=== PATIENT | male | born 1960 | race Caucasian/White ===

== ENCOUNTER 2018-08-12 06:08 | Day surgery (SDC) | payer OTHER ==
[~2018-08-12] VITALS: Ht 185.4 cm; Wt 129.6 kg
[~2018-08-12 06:08] MED LIST: AMIO200T PO; ATEN50TA2 PO; ATOR1TAB19 PO; ELIQ5TAB PO; FENO134C PO; HYDR25TAB PO; LOSA100T50 PO; LR 1,000 ML IV ONE; NORV5TAB PO
[2018-08-12] MEDS ORDERED: LIDOCAINE 2% INJ 100 MG/5 ML SDV (FOR ANES.) As Ordered ONE (06:53)
[2018-08-12] MEDS ORDERED: PROPOFOL 200 MG/20 ML VIAL As Ordered ONE (06:53)
--- NOTE | 2018-08-12 07:23 | ECGEPIP ---
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
[2018-08-12 08:31] VITALS: BP 112/69
--- NOTE | 2018-08-12 09:06 | RO ---
DATE OF PROCEDURE: 08/12/2018 PRINCIPAL DIAGNOSIS: Atrial fibrillation. PROCEDURE: Cardioversion. SURGEON: Dr. Musa Coon ANESTHESIA: Lucia Ahumada CRNA HISTORY: Mr. Lorenzo is a 57-year-old man who was found to be in atrial fibrillation in January 2018. He was anticoagulated started on amiodarone but in spite of that he did not convert to sinus rhythm. Because he is otherwise relatively healthy and still very young, I felt it was appropriate to restore sinus mechanism. I explained the rationale, the potential outcomes and complications to the patient on outpatient basis and he did sign appropriate consent. He was then brought to hospital in a fasting condition. PROCEDURE NOTE: After the patient was examined and appropriate time-out was taken, he was brought to the recovery room and appropriate monitors and defibrillator patches were applied. Anesthesia administered sedation. He received total 150 mg of IV propofol. When appropriate level of sedation was accomplished, he was cardioverted with 200 joules of energy in synchronized mode with typical position of defibrillator patches. Single shock led to hinduism of sinus mechanism without post conversion pause. The patient tolerated the procedure overall well and currently 12-lead ECG is pending. He will be discharged home on his current medications and will schedule followup appointment in our office next week. DANIELE
--- NOTE | 2018-08-13 13:18 | ECGEPIP ---
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
== END 2018-08-12 08:35 | disposition home or self-care (01) ==
LOC: M SDC 06:08
PROVIDERS: ATTEND Internal Medicine Cardiovascular Disease
DX: I48.91 Unspecified atrial fibrillation (principal); I10 Essential (primary) hypertension; Z88.5 Allergy status to narcotic agent; Z79.899 Other long term (current) drug therapy

== ENCOUNTER → 2018-09-14 | Outpatient (CLI) | payer OTHER ==
[~2018-09-14] MED LIST changes: -LR 1,000 ML IV ONE
--- NOTE | 2018-09-21 10:28 | SLEEPCENT ---
DATE OF STUDY: 09/14/2018 ORDERED BY: MARJAN Lopez Nocturnal polysomnography was performed for evaluation of sleep physiology in this patient with history of excessive somnolence and nonrestorative sleep who has comorbidities of hypertension, prior history of atrial fibrillation. 7 hours and 48 minutes of data were reviewed. There were 290 minutes of sleep identified. Sleep latency was prolonged at 43 minutes. Rapid eye movement (REM) latency was short at 42 minutes. Sleep architecture showed fragmentation and a period of wake around 3:00 a.m. resulting in a sleep efficiency of 62.6%. The electrocardiogram showed sinus rhythm with an average heart rate of 65 beats per minute. Rate ranged 45-80. EEG showed normal waveforms for awake and sleep. Some mild alpha intrusion was suspected in non REM stages. There were no focal events and there were normal waveforms for awake and sleep. There were 87 respiratory events identified of 10 seconds in duration or greater for an apnea-hypopnea index of 18. The events were primarily obstructive, not exclusive to sleep stage, more frequent but not exclusive to the supine posture. Arousals from respiratory events occurred 5.8 times per hour and oxygen desaturations were seen into the upper 70s. There was some limb activity in the EMG leads, one train at 30 events and limb movement arousal index was 6.4. IMPRESSION: Obstructive sleep apnea syndrome (G47.33). Apnea-hypopnea index 18. RECOMMENDATION: The patient should be encouraged to return to the sleep disorder center for pressure therapy. In the interim, alcohol and sedative avoidance should be practiced and caution exercised during the operation of motor vehicles. cc: Musa Coon MD
== END ==
LOC: M SLEEP 19:39
PROVIDERS: ATTEND Nurse Practitioner Family
DX: G47.33 Obstructive sleep apnea (adult) (pediatric) (principal)

== ENCOUNTER → 2018-10-07 | Outpatient (CLI) | payer OTHER ==
--- NOTE | 2018-10-14 07:58 | SLEEPCENT ---
DATE OF PROCEDURE: 10/07/2018 ORDERING PROVIDER: Jeimy Ramey, copy to FAUSTINO Miranda. INTERPRETATION: Nocturnal polysomnography was performed for the titration of pressure therapy in this patient with obstructive sleep apnea syndrome, and apnea-hypopnea index of 18. For testing the patient was fit with a [employer]Med Mirage Quattro full-face mask of medium size, 4 cm of water pressure were applied to the circuit, and the lights were extinguished. 7 hours and 20 minutes of data were reviewed. There were 231.5 minutes of sleep identified. Sleep latency was prolonged at 52 minutes. Rapid eye movement (REM) latency was short at 32 minutes. Sleep architecture was good with three REM cycles. Overall sleep efficiency was 53.2% due to a period wake around 2:00 a.m. The electrocardiogram showed sinus rhythm with an average heart rate of 60 beats per minute. EEG showed fairly normal waveforms for awake and sleep. Respiratory events were fully palliated with CPAP of pressure +8 and remaining measures of sleep physiology were normal. IMPRESSION: Obstructive sleep apnea syndrome (G47.33) RECOMMENDATIONS: Nightly use of pressure therapy 8 cm of water.
== END ==
LOC: M SLEEP 19:36
PROVIDERS: ATTEND Nurse Practitioner Family
DX: G47.33 Obstructive sleep apnea (adult) (pediatric) (principal)

== ENCOUNTER → 2020-08-19 | Outpatient (CLI) | payer OTHER ==
[~2020-08-19] MED LIST changes: -AMIO200T PO; +AMIO200T3 PO; +HYDR-3490 PO; -HYDR25TAB PO
--- NOTE | 2020-08-21 09:25 | REP ---
INDICATION: CONTUSION RIGHT LOWER LEG. COMPARISON: None. TECHNIQUE: Axial, coronal, and sagittal imaging planes utilized. T1 and T2 weighted scans are included with without fat saturation. FINDINGS: Cortical and medullary bone signal intensity are normal in the tibia and fibula. No occult fracture or periosteal reaction is seen. No bony destructive lesion is observed. Skeletal muscle of the calf is normal in contour, course and signal intensity on T1 and T2 weighted scans. No abnormal fluid collection is seen. There is diffuse edema in the subcutaneous fat of the calf. There are superficial vein varicosities in the proximal calf medially. No other vascular abnormality is seen. No soft tissue mass is appreciated. IMPRESSION: No acute bony abnormality. Diffuse subcutaneous edema. Superficial vein varicosities. Otherwise negative <Electronically signed by Javad Moon > 08/21/20 2054
== END ==
LOC: M RAD 14:01
PROVIDERS: ATTEND Orthopaedic Surgery
DX: S80.11XD Contusion of right lower leg, subsequent encounter (principal); W18.30XD Fall on same level, unspecified, subsequent encounter; Y92.009 Unspecified place in unspecified non-institutional (private) residence as the place of occurrence of the external cause

== ENCOUNTER → 2021-04-07 | Outpatient (CLI) | payer OTHER ==
[~2021-04-07] MED LIST changes: -AMIO200T3 PO; +AMIO200T49 PO; +LOSA100T45 PO; -LOSA100T50 PO
== END ==
LOC: M LABSMTC 10:39
PROVIDERS: ATTEND Anesthesiology
DX: Z01.818 Encounter for other preprocedural examination (principal); Z11.52 Encounter for screening for COVID-19

== ENCOUNTER 2021-04-12 12:20 | Day surgery (SDC) | payer OTHER ==
[~2021-04-12] VITALS: Ht 185.4 cm; Wt 123.3 kg
[~2021-04-12 12:20] MED LIST changes: -FENO134C PO; +FENO134C16 PO
[2021-04-12] MEDS ORDERED: propofoL 200 MG/20 ML VIAL As Ordered ONE (13:16)
[2021-04-12] MEDS ORDERED: LIDOCAINE 2% 100MG/5ML SDV (FOR ANES.) As Ordered ONE (13:16)
[2021-04-12 14:40] VITALS: BP 136/78
[2021-04-14] MEDS ORDERED: NS 1,000 ML IV ONE (06:00)
== END 2021-04-12 14:59 | disposition home or self-care (01) ==
LOC: M OPP 12:20
PROVIDERS: ATTEND Surgery
DX: Z12.11 Encounter for screening for malignant neoplasm of colon (principal); Z79.899 Other long term (current) drug therapy; Z88.8 Allergy status to other drugs, medicaments and biological substances; G47.33 Obstructive sleep apnea (adult) (pediatric)

== ENCOUNTER → 2023-09-05 | Outpatient (REF) | payer OTHER ==
[~2023-09-05] MED LIST changes: -FENO134C16 PO; +FENO134C20 PO; -LOSA100T45 PO; +LOSA100T46 PO
== END ==
LOC: M LAB REF 12:09
PROVIDERS: ATTEND Nurse Practitioner Family
DX: L03.116 Cellulitis of left lower limb (principal)

== ENCOUNTER 2023-10-07 06:01 | Day surgery (SDC) | payer OTHER ==
[~2023-10-07] VITALS: Ht 185.4 cm; Wt 127.7 kg
[~2023-10-07 06:01] MED LIST changes: +AMLO1TAB25 PO; +METO1TAB32 PO
[2023-10-07] MEDS ORDERED: LIDOCAINE 1% SDV 5ML VIAL SC PRN (06:15)
[2023-10-07] MEDS: LR 1,000 ML IV SCH (06:47)
[2023-10-07 07:45] VITALS: BP 128/80; TEMP 97.3; O2SAT 97
[2023-10-07] MEDS ORDERED: propofoL 200 MG/20 ML VIAL As Ordered ONE (08:05)
== END 2023-10-07 08:02 | disposition home or self-care (01) ==
LOC: M SDC 06:01
PROVIDERS: ATTEND Internal Medicine Cardiovascular Disease
DX: I48.91 Unspecified atrial fibrillation (principal); Z98.890 Other specified postprocedural states; G47.30 Sleep apnea, unspecified; Z88.5 Allergy status to narcotic agent; Z79.899 Other long term (current) drug therapy